=== PATIENT | female | born 1975 | race Caucasian/White ===

== ENCOUNTER 2016-04-20 13:04 | Emergency (ER) | payer MEDICAID ==
[~2016-04-20] VITALS: Wt 105.5 kg
[~2016-04-20 13:04] MED LIST: NITR-58 PO; PEN500 PO; RANI150T9 PO
[2016-04-20] MEDS ORDERED: FAMOTIDINE 20 MG INJ IV STA (13:19)
[2016-04-20] MEDS ORDERED: SOD CHLORIDE 0.9% 1,000 ML IV STA (13:19)
[2016-04-20] MEDS ORDERED: morphine 4 MG/ML VIAL IV STA (13:19)
[2016-04-20] MEDS ORDERED: ONDANSETRON 4 MG INJ IV STA (13:19)
[2016-04-20 14:29] LABS: CONDITION 1; EOSINOPHILS # 0.1 10^3/ul (0.0-0.5); EOSINOPHILS % 0.4 % (0.0-7.0); HEMATOCRIT 39.1 % (37.0-47.0); HEMOGLOBIN 13.3 g/dl (12.0-16.0); LH ANALYZER COMMENTS 1; LYMPHOCYTES # 1.6 10^3/ul (0.8-2.9); LYMPHOCYTES % 11.4 % (15.0-51.0); MEAN CORPUSCULAR HEMOGLOBIN 31.4 pg (29.0-33.0); MEAN CORPUSCULAR HGB CONC 33.9 g/dl (32.0-37.0); MEAN CORPUSCULAR VOLUME 92.5 fl (82.0-101.0); MEAN PLATELET VOLUME 8.2 fl (7.4-10.4); MONOCYTE # 0.5 10^3/ul (0.3-0.9); MONOCYTES % 3.7 % (0.0-11.0); NEUTROPHIL # 11.7 10^3/ul (1.6-7.5); NEUTROPHILS % 84.5 % (39.0-77.0); PLATELET COUNT 215 10^3/UL (140-440); RED BLOOD COUNT 4.23 10^6/ul (4.20-5.40); RED CELL DISTRIBUTION WIDTH 13.9 % (11.5-14.5); SUSPECT 1; UNCORRECTED WBC 13.8 10^3/ul (4.8-10.8); WHITE BLOOD COUNT 13.8 10^3/ul (4.8-10.8)
[2016-04-20 14:33] LABS: ALBUMIN 3.7 g/dl (3.3-4.9)
[2016-04-20 14:34] LABS: POTASSIUM 4.1 mmol/L (3.5-5.1)
[2016-04-20 14:36] LABS: BILIRUBIN,INDIRECT 0.1 mg/dl (0-1.1); BILIRUBIN,TOTAL 0.1 mg/dl (0.2-1.3); CREATININE 0.44 mg/dl (0.44-1.00)
[2016-04-20 14:37] LABS: ALBUMIN/GLOBULIN RATIO 1.08; CALCIUM 9.3 mg/dl (8.4-10.2); TOTAL PROTEIN 7.1 g/dl (6.1-8.1)
--- NOTE | 2016-04-20 14:52 | RADRPT ---
PROCEDURE: Real Time Sonogram. [id number] 02:37 p.m. CLINICAL INDICATION: 40-year female with vaginal bleeding. TECHNIQUE: This procedure was performed on a high-resolution real time Unit using a endovaginal pr obe. COMPARISON: OB sonogram 04/12/2015. FINDINGS: Presentation: Breech. Cervical Length: Not evaluated.Placental Location: Posterior grade 0.Placental Previa: Not demonst rated. Body limb and cardiac motion: Yes.Heart rate: 150 4 beats per minute The skull, ventricles and stomach are unremarkable. Other anatomy is not evaluated. sex: Not evaluated. Amniotic fluid volume:Normal. Measured data: BPD:4.7 cm20 weeks 1 day. HC:16.5 cm19 weeks 1 day. AC:16.42 cm21 weeks 3 days. FC:3.1 cm19 weeks 4 days. AUA:20 weeks 1 dayplus or minus 1 week 3 days. DELONTE (AUA):09/23/2016. Serial scan estimated menstrual age: Not calculated. weight: 254 g plus/minus 53 g. Endovaginal imaging utilized: Yes. Additional findings: No. IMPRESSION: See above. RPTAT:AAJJ Physician Deni Date Time Electronically viewed and signed by Physician Deni on 04/20/2016 14:51 JM/
--- NOTE | 2016-04-20 15:09 | ERD ---
ER Documentation Chief Complaint Date/Time DATE: 04/20/16 TIME: 15:08 Chief Complaint ABD PAIN WITH NAUSEA SINCE AM HPI This is a 40-year-old female presents to the emergency room with a chief complaint of abdominal cramping and nausea for 1 days duration. The patient does state that she is . She thinks that she is approximately 15 weeks . She denies any vaginal bleeding or vaginal discharge. Patient came to the ER for evaluation. ROS All systems reviewed and are negative except as per history of present illness. Medications Home Meds Active Scripts Nitrofurantoin Monohyd Macrocr* (Macrobid*) 100 Mg Capsr, 100 MG PO BID for 14 Days, CAP Prov:COLETTE CUBA DO 02/10/16 Nitrofurantoin Monohyd Macrocr* (Macrobid*) 100 Mg Capsr, 100 MG PO BID for 5 Days, CAP Prov:JANET SAUCEDO SQL ANALYST 11/05/15 Penicillin V Potassium* (Penicillin V K*) 500 Mg Tab, 500 MG PO BID for 10 Days , TAB Prov:MARTHA AMADOR 07/31/15 Ranitidine Hcl* (Zantac*) 150 Mg Tablet, 150 MG PO BID for EPIGASTRIC PAIN, #30 TAB Prov:CLARA ALATORRE DO 07/01/15 Allergies Allergies: Coded Allergies: No Known Drug Allergy (Unverified Allergy, Unknown, 01/22/14) PMhx/Soc History of Surgery: Yes (c section x's 2 ) Anesthesia Reaction: No Hx Neurological Disorder: No Hx Respiratory Disorders: No Hx Cardiac Disorders: Yes (HIGH CHOLESTEROL) Hx Psychiatric Problems: No Hx Miscellaneous Medical Probl: Yes Hx Alcohol Use: No Hx Substance Use: No Hx Tobacco Use: No Smoking Status: Never smoker Physical Exam Vitals Vital Signs Date Time Temp Pulse Resp B/P Pulse Ox O2 Delivery O2 Flow Rate FiO2 04/20/16 13:05 98.7 99 25 190/96 99 Physical Exam Const: No acute distress Head: Atraumatic Eyes: Normal Conjunctiva ENT: Normal External Ears, Nose and Mouth. Neck: Full range of motion..~ No meningismus. Resp: Clear to auscultation bilaterally Cardio: Regular rate and rhythm, no murmurs Abd: Soft, non tender, non distended. Normal bowel sounds Skin: No petechiae or rashes Back: No midline or flank tenderness Ext: No cyanosis, or edema Neur: Awake and alert Psych: Normal Mood and Affect Result Diagram: 04/20/16 1350 04/20/16 1350 Results 24 hrs Laboratory Tests Test 04/20/16 13:50 Alanine Aminotransferase (ALT/SGPT) 26IU/L Albumin 3.7g/dl Albumin/Globulin Ratio 1.08 Alkaline Phosphatase 54IU/L Anion Gap 19 Aspartate Amino Transf (AST/SGOT) 26IU/L Basophils # 0.010^3/ul Basophils % 0.0% Beta HCG, Quantitative 9032.4mIU/ml Blood Urea Nitrogen 9mg/dl Calcium Level 9.3mg/dl Carbon Dioxide Level 21mmol/L Chloride Level 105mmol/L Creatinine 0.44mg/dl Direct Bilirubin 0.00mg/dl Eosinophils # 0.110^3/ul Eosinophils % 0.4% Globulin 3.40g/dl Glucose Level 74mg/dl Hematocrit 39.1% Hemoglobin 13.3g/dl Indirect Bilirubin 0.1mg/dl Lipase 74U/L Lymphocytes # 1.610^3/ul Lymphocytes % 11.4% Mean Corpuscular Hemoglobin 31.4pg Mean Corpuscular Hemoglobin Concent 33.9g/dl Mean Corpuscular Volume 92.5fl Mean Platelet Volume 8.2fl Monocytes # 0.510^3/ul Monocytes % 3.7% Neutrophils # 11.710^3/ul Neutrophils % 84.5% Nucleated Red Blood Cells # 0.010^3/ul Nucleated Red Blood Cells % 0.0/100WBC Platelet Count 94802^3/UL Potassium Level 4.1mmol/L Red Blood Count 4.2310^6/ul Red Cell Distribution Width 13.9% Sodium Level 141mmol/L Total Bilirubin 0.1mg/dl Total Protein 7.1g/dl White Blood Count 13.810^3/ul Current Medications Medications (Trade) Dose Ordered Sig/Jacoby Route PRN Reason Start Time Stop Time Status Last Admin Dose Admin Sodium Chloride (NS) 1,000 ml @ 1,000 mls/hr Q1H STAT IV 04/20/16 13:19 04/20/16 14:18 DC 04/20/16 14:01 Morphine Sulfate (morphine) 4 mg ONCE STAT IV 04/20/16 13:19 04/20/16 13:20 DC 04/20/16 14:02 Ondansetron HCl (Zofran Inj) 4 mg ONCE STAT IV 04/20/16 13:19 04/20/16 13:20 DC 04/20/16 14:01 Famotidine (Pepcid Iv) 20 mg ONCE STAT IV 04/20/16 13:19 04/20/16 13:20 DC 04/20/16 14:01 Procedures/MDM Ultrasound abdomen: Presentation: Breech. Cervical Length: Not evaluated. Placental Location: Posterior grade 0. Placental Previa: Not demonstrated. Body limb and cardiac motion: Yes. Heart rate: 150 4 beats per minute The skull, ventricles and stomach are unremarkable. Other anatomy is not evaluated. sex: Not evaluated. Amniotic fluid volume: Normal. Measured data: BPD: 4.7 cm 20 weeks 1 day. HC: 16.5 cm 19 weeks 1 day. AC: 16.42 cm 21 weeks 3 days. FC: 3.1 cm 19 weeks 4 days. AUA: 20 weeks 1 day plus or minus 1 week 3 days. DELONTE (AUA): 09/23/2016. Serial scan estimated menstrual age: Not calculated. weight: 254 g plus/minus 53 g. Endovaginal imaging utilized: Yes. Additional findings: No. This 40-year-old female presents to the ER for evaluation of abdominal cramping. Patient was found to be 20 weeks and 1 day gestational age with a breech presentation. This patient has no bleeding, hemodynamically stable. The patient with discharge at this time and will be sent to OB triage for 4 hour monitoring Departure Diagnosis: Primary Impression: Abdominal pain affecting Additional Impression: Breech presentation Condition: Stable COLETTE CUBA DO Apr 20, 2016 15:09
[2016-04-20 15:20] VITALS: BP 118/60; PULSE 67; RESP 18; TEMP 98.7
[2016-04-20 15:28] LABS: ADD UMIC YES; URINE BILIRUBIN (Dip) NEGATIVE (NEGATIVE); URINE BLOOD (Dip) TRACE (NEGATIVE); URINE COLOR LT. YELLOW (YELLOW); URINE GLUCOSE (Dip) NEGATIVE (NEGATIVE); URINE KETONES (Dip) NEGATIVE (NEGATIVE); URINE LEUKOCYTE ESTERASE (Dip) 1+ (NEGATIVE); URINE NITRITE (Dip) NEGATIVE (NEGATIVE); URINE TOTAL PROTEIN (Dip) NEGATIVE (NEGATIVE); URINE UROBILINOGEN (Dip) 0.2 E.U./dL (0.1-1.0)
[2016-04-20 15:49] LABS: BACTERIA,URINE MODERATE; SQUAMOUS EPITHELIAL CELL,UR MANY; URINE RBCS 0-2 /HPF (0)
[2016-04-20] MEDS ORDERED: PREN1TAB17 PO (16:34)
[2016-04-20] MEDS ORDERED: FERR325C PO (21:12)
== END 2016-04-20 15:25 | disposition home or self-care (01) ==
LOC: E/R 13:04
DX: O26.892 Other specified pregnancy related conditions, second trimester (principal); O32.1XX0 Maternal care for breech presentation, not applicable or unspecified; R11.0 Nausea; R10.9 Unspecified abdominal pain; Z3A.20 20 weeks gestation of pregnancy
CPT/HCPCS: 36415; 76805; 80053; 81001; 83690; 84702; 85025; 96374; 96375; J2270; J2405; J7030; Z7502; Z7610; 81003

== ENCOUNTER 2016-04-20 15:58 | Outpatient (CLI) | payer MEDICAID ==
[~2016-04-20] VITALS: Ht 157.5 cm; Wt 103.5 kg
[2016-04-20 16:31] VITALS: BP 115/56; Ht 157.5 cm; Wt 103.5 kg
[2016-04-20] MEDS ORDERED: PREN1TAB17 PO (16:34)
--- NOTE | 2016-04-20 20:23 | HP ---
Date/Time of Note Date/Time of Note DATE: 04/20/16 TIME: 20:18 OB - History Hx of Present Free Text/Dictation OB Triage Pt is a 40yo at 18+6 who presents with c/o LAP since noon today. Pt states pain has significantly decreased and is quite minimal now. Denies vaginal bleeding, leaking of fluid, dysuria or back pain. PROCEDURE: Real Time Sonogram. [id number] 02:37 p.m. CLINICAL INDICATION: 40-year female with vaginal bleeding. TECHNIQUE: This procedure was performed on a high-resolution real time Unit using a endovaginal probe. COMPARISON: OB sonogram 04/12/2015. FINDINGS: Presentation: Breech. Cervical Length: Not evaluated. Placental Location: Posterior grade 0. Placental Previa: Not demonstrated. Body limb and cardiac motion: Yes. Heart rate: 150 4 beats per minute The skull, ventricles and stomach are unremarkable. Other anatomy is not evaluated. sex: Not evaluated. Amniotic fluid volume: Normal. Measured data: BPD: 4.7 cm 20 weeks 1 day. HC: 16.5 cm 19 weeks 1 day. AC: 16.42 cm 21 weeks 3 days. FC: 3.1 cm 19 weeks 4 days. AUA: 20 weeks 1 day plus or minus 1 week 3 days. DELONTE (AUA): 09/23/2016. Serial scan estimated menstrual age: Not calculated. weight: 254 g plus/minus 53 g. Endovaginal imaging utilized: Yes. Additional findings: No. IMPRESSION: See above. PROCEDURE: CERVICAL LENGTH ULTRASOUND CLINICAL INDICATION: Pelvic pain. TECHNIQUE: Trans-vaginal imaging of the cervical canal was performed utilizing carrillo-scale imaging. Sagittal and transverse images were obtained. Trans-abdominal images were also obtained. The images were reviewed on a PACS workstation. COMPARISON: None. FINDINGS: There is a single live intrauterine . heart rate is 150 beats per minute. Position is cephalic/variable and placenta is posterior grade 0. There is no placenta previa. The cervix is closed with a length of 4.4 cm. IMPRESSION: 1. Cervical length is 4.4 cm. Care: Good Care Past Family/Social History * Past Medical, Surgical, Family and Obstetric Histories reviewed from chart. OB Admission Exam Vital Signs Vital Signs Vital Signs Date Time Temp Pulse Resp B/P Pulse Ox O2 Delivery O2 Flow Rate FiO2 04/20/16 16:31 98.1 115/56 Room Air Physical Exam Abdomen: WNL (soft, NT, no rebound or guarding) Heart Rate: 140's OB Assessment/Plan Other Assessment: Lower abdominal cramping w/o e/o short cervix, UTI or SAB Other plan: SAB precautions reviewed. Questions answered to patient's satisfaction. Appropriate for d/c home. Pt advised to f/up as scheduled with Dr. Arizmendi as an outpatient. LIT BOYD MD Apr 20, 2016 20:23
--- NOTE | 2016-04-20 20:57 | RADRPT ---
PROCEDURE: CERVICAL LENGTH ULTRASOUND CLINICAL INDICATION: Pelvic pain. TECHNIQUE: Trans-vaginal imaging of the cervical canal was performed utilizing carrillo-scale imaging. Sagittal and transverse images were obtained. Trans-abdominal images were also obtained. The nicolás ges were reviewed on a PACS workstation. COMPARISON: None. FINDINGS: There is a single live intrauterine . heart rate is 150 beats per minute. Position is cephalic/variable and placenta is posterior grade 0. There is no placenta previa. The cervix is closed with a length of 4.4 cm. IMPRESSION: 1. Cervical length is 4.4 cm. RPTAT: QQ .Alexandre Murphy MD, MD Date Time Electronically viewed and signed by .Alexandre Murphy MD, on 04/20/2016 20:57 .R/
[2016-04-20] MEDS ORDERED: FERR325C PO (21:12)
--- NOTE | 2016-04-20 21:35 | TRIAGE ---
OB Triage Datetime Report Generated by CPN: 04/20/2016 21:35 Datetime: 04/20/2016 21:05 Stage of : OB Triage Datetime: 04/20/2016 21:00 Stage of : OB Triage Datetime: 04/20/2016 20:57 Stage of : Recovery Comments: FHR 150BPM per U/S results Datetime: 04/20/2016 19:59 Stage of : OB Triage Datetime: 04/20/2016 19:45 Stage of : OB Triage Datetime: 04/20/2016 19:40 Stage of : OB Triage Assessment Type: Triage Maternal Assessment Level of Consciousness: Fully Conscious DTR's/Clonus: DTRs 2+; No Clonus Headache: Denies Blurred Vision: No Respiratory Effort: Unlabored; Regular Rhythm; Equal Expansion Breath Sounds, Left: Clear and Equal Breath Sounds, Right: Clear and Equal Nausea/Vomiting: Denies RUQ Epigastric Pain: Denies Lower Extremities Edema: None Degree: None Upper Extremities Edema: None Degree: None Facial Edema: None Fall Risk Assessment History of Falling: (0) No Secondary Diagnosis: (0) No Ambulatory Aid: (0) Bedrest/Nurse Assist IV Therapy: (0) No Gait: (0) Normal/Bedrest/Immobile Mental Status: (0) Oriented to Own Ability Fall Score: 0 Fall Risk Score Definition: No Risk: No action required Labor Evaluation Frequency: None noted or palpated. Pt denies any pain or cramping at this time. Monitor Mode: External Resting Tone [place]: Relaxed Pain Assessment Pain Scale: 0 Pain Presence: None/Denies Pain Type: N/A Datetime: 04/20/2016 18:06 Stage of : OB Triage Labor Evaluation Frequency: 0 Monitor Mode: External Pattern: Normal: <= 5 Contractions in 10 Minutes Resting Tone [place]: Relaxed Pain Presence: None/Denies Pain Type: N/A Datetime: 04/20/2016 16:37 Stage of : OB Triage Assessment Type: Triage EGA: 18.6 Maternal Assessment Level of Consciousness: Fully Conscious DTR's/Clonus: DTRs 2+; No Clonus Headache: Denies Blurred Vision: No Respiratory Effort: Unlabored; Regular Rhythm; Equal Expansion Breath Sounds, Left: Clear and Equal Breath Sounds, Right: Clear and Equal Nausea/Vomiting: Denies RUQ Epigastric Pain: Denies Lower Extremities Edema: None Degree: None Upper Extremities Edema: None Degree: None Facial Edema: None Temperature Route: Oral Fall Risk Assessment History of Falling: (0) No Secondary Diagnosis: (0) No Ambulatory Aid: (0) Bedrest/Nurse Assist IV Therapy: (0) No Gait: (0) Normal/Bedrest/Immobile Mental Status: (0) Oriented to Own Ability Fall Score: 0 Fall Risk Score Definition: No Risk: No action required Labor Evaluation Frequency: 0 Monitor Mode: External Heart Rate Monitor Mode: Doppler (Annotations: 145-155) Pain Assessment Pain Scale: 0 Pain Presence: None/Denies Pain Type: N/A Datetime: 04/20/2016 16:36 Time of Arrival: 04/20/2016 15:40 Arrived By: Wheelchair Arrived From: Emergency Dept Chief Complaint: C/O ABDOMINAL PAIN Movement: Absent Patient Complaints: Other Time Provider Notified: 04/20/2016 16:37 Provider Notified: DR. MARSHALL Initial Plan: HARSH
== END 2016-04-20 21:15 | disposition home or self-care (01) ==
LOC: OBT 15:58 → L-D 15:59 → OBT 21:15
PROVIDERS: ATTEND Obstetrics & Gynecology
DX: O60.02 Preterm labor without delivery, second trimester (principal); Z3A.20 20 weeks gestation of pregnancy
CPT/HCPCS: 76817; Z7500; G0463

== ENCOUNTER 2016-09-05 13:15 | Inpatient (IN) | payer MEDICAID ==
[~2016-09-05] VITALS: Ht 157.5 cm; Wt 120.3 kg
[~2016-09-05 13:15] MED LIST changes: +FERR325C PO; -NITR-58 PO; -PEN500 PO; +PREN1TAB17 PO; -RANI150T9 PO
[2016-09-05 14:08] VITALS: Ht 157.5 cm; Wt 120.3 kg
[2016-09-05 14:09] VITALS: BP 119/63; PULSE 64; RESP 18
--- NOTE | 2016-09-05 14:43 | RADRPT ---
PROCEDURE: US OB biophysical profile. CLINICAL INDICATION: decreased movements TECHNIQUE: Multiple sonographic images of the pelvis were obtained. The images were reviewed on a PACS workstation. COMPARISON: 04/20/2016 FINDINGS: There is a single viable intrauterine gestation. Cardiac activity is present with 128 beats per min north fork. There is a vertex presentation. The placenta is fundal maternal left. There is no evidence of placental abruption. There is a slightly increased amount of amniotic fluid with an VIKTOR = 20.5 cm. Biophysical profile: movement 2/2 tone 2/2. breathing 2/2 VIKTOR 2/2 Total 10/08 RPTAT: AA . IMPRESSION: Normal biophysical profile. Slightly increased VIKTOR. . .Kaleb Morejon MD, Date Time Electronically viewed and signed by .Kaleb Morejon MD, MD on 09/05/2016 14:43 .S/
[2016-09-05] MEDS: LACTATED RINGER'S 1,000 ML IV SCH ×2 (15:43→18:02)
[2016-09-05] MEDS ORDERED: METHYLERGONOVINE 0.2 MG INJ IM PRN ×2 (17:00→22:00)
[2016-09-05] MEDS ORDERED: OXYTOCIN 30 UNITS/LR 500 ML IV PRN ×2 (17:00→22:00)
[2016-09-05] MEDS ORDERED: OXYTOCIN 30 UNITS/LR 500 ML IV SCH (17:00)
[2016-09-05] MEDS ORDERED: CARBOPROST 250 MCG INJ IM PRN ×2 (17:00→22:00)
[2016-09-05] MEDS ORDERED: MISOPROSTOL 200 MCG TAB PR PRN ×2 (17:00→22:00)
[2016-09-05] MEDS ORDERED: CEFAZOLIN 2 GM/50 ML (PMX) 50 ML IV SCH (17:00)
[2016-09-05 17:21] LABS: ADD SCAN DIFF NO; BASOPHILS % 0.3 % (0.0-2.0); EOSINOPHILS # 0.1 10^3/ul (0.0-0.5); HEMATOCRIT 37.9 % (37.0-47.0); HEMOGLOBIN 13.2 g/dl (12.0-16.0); LYMPHOCYTES # 1.6 10^3/ul (0.8-2.9); LYMPHOCYTES % 16.9 % (15.0-51.0); MEAN CORPUSCULAR HEMOGLOBIN 32.4 pg (29.0-33.0); MEAN CORPUSCULAR HGB CONC 34.8 g/dl (32.0-37.0); MEAN CORPUSCULAR VOLUME 92.9 fl (82.0-101.0); MEAN PLATELET VOLUME 10.5 fl (7.4-10.4); MONOCYTE # 0.5 10^3/ul (0.3-0.9); MONOCYTES % 5.1 % (0.0-11.0); NEUTROPHIL # 7.1 10^3/ul (1.6-7.5); NEUTROPHILS % 75.3 % (39.0-77.0); PLATELET COUNT 194 10^3/UL (140-415); RED BLOOD COUNT 4.08 10^6/ul (4.20-5.40); RED CELL DISTRIBUTION WIDTH 14.2 % (11.5-14.5); WHITE BLOOD COUNT 9.4 10^3/ul (4.8-10.8)
[2016-09-05 17:25] LABS: INR 0.83; PROTIME 11.4 Sec (12.2-14.2); PT RATIO 0.9
[2016-09-05 17:26] LABS: PARTIAL THROMBOPLASTIN TIME 28.7 Sec (25.0-35.0)
[2016-09-05] MEDS ORDERED: FENTAnyl 50 MCG/ML VIAL ONE (18:22)
[2016-09-05] MEDS ORDERED: morphine SULFATE/PF (10 MG/10 ML) INJ ONE (18:22)
[2016-09-05] MEDS ORDERED: PHENYLephrine (100 MCG/ML) 5ML SYG ONE (18:22)
[2016-09-05] MEDS ORDERED: LIDOCAINE 1% (MDV) 20 ML INJ ONE (18:45)
[2016-09-05] MEDS ORDERED: DEXAMETHASONE 4 MG/ML 1 ML INJ ONE (19:10)
[2016-09-05] MEDS ORDERED: ONDANSETRON 4 MG INJ ONE (19:10)
[2016-09-05] MEDS ORDERED: OXYTOCIN 10 UNIT INJ ONE ×2 (19:12→20:12)
[2016-09-05] MEDS ORDERED: NALOXONE (0.4 MG/ML) INJ IV PRN (20:00)
[2016-09-05] MEDS ORDERED: PROCHLORPERAZINE 10 MG INJ IV PRN (20:00)
[2016-09-05] MEDS ORDERED: ONDANSETRON 4 MG INJ IV PRN (20:00)
[2016-09-05] MEDS ORDERED: HYDROmorphONE 1 MG/ML SYG IV PRN ×2 (20:00)
[2016-09-05] MEDS ORDERED: KETOROLAC 30 MG INJ IV PRN (20:00)
[2016-09-05] MEDS ORDERED: DIPHENHYDRAMINE 50 MG INJ IV PRN (20:00)
[2016-09-05] MEDS ORDERED: ZOLPIDEM 5 MG TAB PO PRN (20:00)
[2016-09-05] MEDS ORDERED: CEFAZOLIN 1 GM INJ ONE (20:07)
[2016-09-05] MEDS ORDERED: METHYLENE BLUE 1% 10 ML INJ ZFS ONE (20:30)
--- NOTE | 2016-09-05 21:09 | HP ---
Date/Time of Note Date/Time of Note DATE: 09/05/16 TIME: 21:04 OB - History Hx of Present Free Text/Dictation admitted in labor at 38 weeks with previous C/S X 2 and desire for sterilization Chief Complaint: decreased FM noticed to have uterine contractions Last Menstrual Period: Dec 13, 2006 Estimated Due Date: Sep 19, 2016 : 3 Para: 2 Care: Good Care Ultrasounds: Normal mid trimester US Obstetrical Complications: None Medical Complications: Other (previous C/S X 2 ) Past Family/Social History * Past Medical, Surgical, Family and Obstetric Histories reviewed from chart. Blood Type: O+ Rubella: immune RPR/VDRL: Negative GBS Status: Negative HBsAG: Negative OB Admission Exam Vital Signs Vital Signs Vital Signs Date Time Temp Pulse Resp B/P Pulse Ox O2 Delivery O2 Flow Rate FiO2 09/05/16 14:09 98.0 64 18 119/63 97 Room Air Physical Exam HEENT: WNL Heart: Rhythm Normal Lungs: Clear, Equal Abdomen: WNL Extremities: Normal Reflexes: Normal Cervical Dilatation: 3cm Effacement: 75% Station: -3 Membranes: Intact Heart Rate: 130's Accelerations: Accelerations Present Decelerations: No Decelerations Varibility: Marked Contractions on Admission: 6-10 Minutes Apart Date/Time Contractions Began: ? Frequency of Contractions: ? Duration: ? Last 72 hours Lab Results CBC & BMP 09/05/16 15:40 OB Assessment/Plan Other Assessment: term gestation previous C/S X 2 labor pains desires sterilization Other plan: repeat C/S + BTL Patient had good awareness of nature and complications of C/S procedure including but but limited to infection and hemorrhage. Permanency and failure of tubal ligation procedure asa well as its future complications including but not limited to pelvic pain or ectopic were also clear to the patient and agreed to undergo C/S + BTL SILVIA RAMIREZ MD Sep 05, 2016 21:08
--- NOTE | 2016-09-05 21:12 | OPR ---
Operative Report Planned Procedure Procedure date Sep 05, 2016 Procedure(s) repeat C/S Performed by: SILVIA RAMIREZ MD Assisting provider: KASSIE AGUIRRE Anesthesiologist: KANIKA GOMEZ MD Pre-procedure diagnosis term gestation previous C/S X 2 desires sterilization labor pains Anesthesia Type: spinal Procedure Description Under satisfactory anaesthesia a Pfannenstiel incision was made two fingerbreadth above and parallel to the symphysis of pubis around the previous scar and previous scar was removed Incision was extended laterally to the border of the Recti muscles on either sides. Incision was carried down with sharp and blunt dissection until fascia was reached. Anterior Recti muscle fascia was incised in mid portion and incision extended laterally to the border of skin incision. Fascia was mobilized from muscle superiorly and Recti muscles were from midline using sharp and blunt dissection. Peritoneum was visualized; Avoiding bowel and bladder it was incised . Incision was extended superiorly and inferiorly. Bladder blade was placed. Posterior peritoneum covering the lower segment of the uterus and lower segment of the uterus were incised.Low transverse uterine incision was made on lower segment of the uterus. Incision extended laterally to the border of Round Lig. on either sides and baby was delivered from OT. position . Amniotic fluid appeared clear. Cord blood was obtained and cord had 3 vessels . Placenta was delivered spontaneously and appeared intact and complete. Intrauterine cavity was rubbed with a laparotomy sponge. Uterine incision was closed in 2 layers using running stitches of No1 Monocryl. Hemostasis appeared secure. Ovaries and Fallopian tubes were within normal limits. Bilateral Tubal Ligation was performed by following procedure: R fallopian tube was raised in mid portion; a Heidi clamp was placed below the fimbriae extending to proximal portion of the fallopian tube. Another clamp was placed parallel to the first and after incising the fallopian tube the stump was sutured using 0 Vicryl stitch. Hemostasis was secure . Same procedure was done on fallopian tube on the opposite side. Hemostasis appeared to be secure on ligated sites of either fallopian tubes. Announcing needle, lap sponge and instrument count to be correct abdomen was closed in layers as follows: Peritoneum and Recti muscles with running stitches of 20 Vicryl. Fascia with running stitch of No 1 PDS. Subcutaneous tissue with running stitches of 20 Chromic and skin was closed using sydni. Patient tolerated the procedure well and was transferred to [facility] in good condition. Post-Procedure Post-procedure diagnosis S/P C/S + BTL Findings: Live Baby Specimen removed: Yes Specimen description segments of R and L fallopian tubes Complications: None Pt Condition post procedure: stable Disposition: PACU Physician Certification I, the undersigned physician, hereby certify that I have discussed the procedure described in this consent form with this patient (or the patient's legal airport representative), including: * The risk and benefits of the procedure; * Any adverse reactions that may reasonably be expected to occur; * Any alternative efficacious methods of treatment which may be medically viable ; * The potential problems that may occur during recuperation; * Potential for blood transfusion and associated risks/benefits; and * Any research or economic interest I may have regarding this treatment. I further certify that the patient/legally responsible person was encouraged to ask question and that all questions were answered. SILVIA RAMIREZ MD Sep 05, 2016 21:12
[2016-09-05] MEDS ORDERED: ACETAMINOPHEN/CODEINE #3 TAB PO PRN (22:00)
[2016-09-05] MEDS ORDERED: NA PHOSPHATE/BIPHOS 133 ML ENEMA PR PRN (22:00)
[2016-09-05] MEDS: IBUPROFEN 800 MG TAB PO SCH (22:00)
[2016-09-05] MEDS ORDERED: VANCOMYCIN 1 GM (PMX) 250 ML IVPB SCH (22:00)
[2016-09-05] MEDS ORDERED: LANOLIN 7 GM TUBE TOP PRN (22:00)
[2016-09-06] MEDS: CEFAZOLIN 2 GM/50 ML (PMX) 50 ML IV SCH ×4 (01:46→17:54)
[2016-09-06] MEDS: LACTATED RINGER'S 1,000 ML IV SCH ×3 (01:47→17:54)
[2016-09-06 02:20] VITALS: BP 98/51; PULSE 59; RESP 18
[2016-09-06 04:00] VITALS: BP 90/45; PULSE 56; RESP 18
[2016-09-06] MEDS: IBUPROFEN 800 MG TAB PO SCH ×3 (06:00→21:34)
[2016-09-06] MEDS: CLINDAMYCIN 300 MG CAP PO SCH ×4 (06:06→17:54)
[2016-09-06 08:35] VITALS: BP 101/52; PULSE 61; RESP 18
[2016-09-06] MEDS: ENOXAPARIN 40 MG/0.4 ML SYG SC SCH ×2 (08:41→09:00)
[2016-09-06 08:44] LABS: ADD SCAN DIFF NO
[2016-09-06 08:47] LABS: BASOPHILS % 0.1 % (0.0-2.0); HEMATOCRIT 35.8 % (37.0-47.0); HEMOGLOBIN 11.7 g/dl (12.0-16.0); LYMPHOCYTES # 1.6 10^3/ul (0.8-2.9); LYMPHOCYTES % 11.3 % (15.0-51.0); MEAN CORPUSCULAR HEMOGLOBIN 30.5 pg (29.0-33.0); MEAN CORPUSCULAR HGB CONC 32.7 g/dl (32.0-37.0); MEAN CORPUSCULAR VOLUME 93.5 fl (82.0-101.0); MEAN PLATELET VOLUME 10.3 fl (7.4-10.4); MONOCYTE # 0.8 10^3/ul (0.3-0.9); MONOCYTES % 5.8 % (0.0-11.0); NEUTROPHIL # 11.2 10^3/ul (1.6-7.5); NEUTROPHILS % 81.9 % (39.0-77.0); PLATELET COUNT 180 10^3/UL (140-415); RED BLOOD COUNT 3.83 10^6/ul (4.20-5.40); RED CELL DISTRIBUTION WIDTH 14.1 % (11.5-14.5); WHITE BLOOD COUNT 13.7 10^3/ul (4.8-10.8)
[2016-09-06] MEDS: SENNA/DOCUSATE NA (8.6MG/50MG) TAB PO SCH ×2 (09:39→21:17)
[2016-09-06] MEDS ORDERED: BISACODYL 10 MG SUPP PR ONE ×2 (10:30→22:00)
[2016-09-06 11:45] VITALS: BP 108/69; PULSE 67; RESP 18
--- NOTE | 2016-09-06 14:47 | PN ---
Date/Time of Note Date/Time of Note DATE: 09/06/16 TIME: 14:45 Assessment/Plan VTE Prophylaxis VTE Prophylaxis Intervention: ambulation Lines/Catheters IV Catheter Type (from Nrsg): Peripheral IV Assessment/Plan Assessment/Plan S/P C/S POD # 1 will advance diet and ambulate Subjective 24 Hr Interval Summary No BM Passing flatus Constitutional: BM, ambulates, flatus, improved, no complaints, urine output Pain Control: well controlled Exam/Review of Systems Vital Signs Vitals Vital Signs Date Time Temp Pulse Resp B/P Pulse Ox O2 Delivery O2 Flow Rate FiO2 09/06/16 11:45 98.2 67 18 108/69 Room Air 09/06/16 09:01 94 21 Intake and Output 09/05/16 09/05/16 09/06/16 15:00 23:00 07:00 Intake Total 2000 ml 1250 ml Output Total 800 ml 1123 ml Balance 1200 ml 127 ml Exam Free Text/Dictation abdomen: soft BS + incision: covered Constitutional: alert, oriented, well developed Psych: nl mood/affect, no complaints Head: atraumatic, normocephalic Eyes: EOMI, nl conjunctiva, nl lids, nl sclera ENMT: mucosa pink and moist, nl external ears & nose, nl lips & teeth, nl nasal mucosa & septum Neck: non-tender, supple Respiratory: clear to auscultation, normal air movement Cardiovascular: nl pulses, regular rate and rhythm Gastrointestinal: nl liver, spleen, non-tender, soft Musculoskeletal: nl extremities to inspection, nl gait and stance Extremities: normal pulses Neurological: BUZZLE BUFFER II-XII intact, nl mental status, nl speech, nl strength Skin: nl turgor, rash or lesions Lymph: nl lymph nodes Results Result Diagram: 09/06/16 0750 SILVIA RAMIREZ MD Sep 06, 2016 14:46
[2016-09-06 15:30] VITALS: BP 110/60; PULSE 77; RESP 18
[2016-09-06 19:35] VITALS: BP 98/49; PULSE 70; RESP 18
[2016-09-06] MEDS: OXYCODONE/ACETAMINOPHEN (5/325) TAB PO PRN (21:34)
[2016-09-07] VITALS: BP 100/69; PULSE 69; RESP 18
[2016-09-07] MEDS: CLINDAMYCIN 300 MG CAP PO SCH ×4 (00:14→19:06)
[2016-09-07] MEDS: OXYCODONE/ACETAMINOPHEN (5/325) TAB PO PRN ×4 (01:39→20:03)
[2016-09-07] MEDS: CEFAZOLIN 2 GM/50 ML (PMX) 50 ML IV SCH ×3 (01:40→19:53)
[2016-09-07 03:50] VITALS: BP 105/53; PULSE 67; RESP 19
[2016-09-07] MEDS: IBUPROFEN 800 MG TAB PO SCH ×3 (05:37→22:44)
[2016-09-07] MEDS: LACTATED RINGER'S 1,000 ML IV SCH (05:50)
[2016-09-07 07:44] LABS: ADD SCAN DIFF NO
[2016-09-07 07:49] LABS: BASOPHILS % 0.3 % (0.0-2.0); EOSINOPHILS # 0.1 10^3/ul (0.0-0.5); HEMATOCRIT 37.2 % (37.0-47.0); HEMOGLOBIN 12.2 g/dl (12.0-16.0); LYMPHOCYTES # 2.7 10^3/ul (0.8-2.9); LYMPHOCYTES % 25.8 % (15.0-51.0); MEAN CORPUSCULAR HGB CONC 32.8 g/dl (32.0-37.0); MEAN CORPUSCULAR VOLUME 94.4 fl (82.0-101.0); MEAN PLATELET VOLUME 9.7 fl (7.4-10.4); MONOCYTE # 0.6 10^3/ul (0.3-0.9); MONOCYTES % 5.8 % (0.0-11.0); NEUTROPHIL # 6.9 10^3/ul (1.6-7.5); NEUTROPHILS % 65.7 % (39.0-77.0); PLATELET COUNT 187 10^3/UL (140-415); RED BLOOD COUNT 3.94 10^6/ul (4.20-5.40); RED CELL DISTRIBUTION WIDTH 14.5 % (11.5-14.5); WHITE BLOOD COUNT 10.5 10^3/ul (4.8-10.8)
[2016-09-07 08:32] VITALS: BP 117/56; PULSE 65; RESP 19
[2016-09-07] MEDS: ENOXAPARIN 40 MG/0.4 ML SYG SC SCH (09:43)
[2016-09-07] MEDS: SENNA/DOCUSATE NA (8.6MG/50MG) TAB PO SCH ×2 (09:45→21:53)
--- NOTE | 2016-09-07 13:59 | DS ---
Date/Time of Note Date/Time of Note home next day DATE: 09/07/16 TIME: 13:56 Obstetrical Discharge Record Final Diagnosis Final Diagnosis: Term delivered Other Final Diagnosis S/P C/S + BTL Vaginal Delivery Obstetrical Delivery: Bilateral Tubal Ligation Section Section: Repeat Condition on Discharge Physical Assessment Last Vitals: see notes Voiding: Yes Bowel Movement: Yes Breast: Soft, non-tender, Filling Fundus: Firm Abdomen and Incision: soft BS + incision: healing well Episiotomy: NA Calf Tenderness: No Patient Condition: Good SILVIA RAMIREZ MD Sep 07, 2016 13:59
--- NOTE | 2016-09-07 14:01 | DS ---
Date/Time of Note Date/Time of Note DATE: 09/07/16 TIME: 13:59 Discharge Summary Admission/Discharge Info Admit Date/Time Sep 05, 2016 at 16:40 Discharge Date/Time 09/07/2016 Discharge Diagnosis S/P C/S + BTL Patient Condition: Good Procedures repeat C/S+BTL Hx of Present Illness 40 y/o female had repeat C/S +BTL iat 38 weeks in labor Hospital Course uncomplicated Home Meds Reported Medications Ferrous Sulfate (Iron) 325 Mg Capsule.er, 325 MG PO DAILY, CAP 04/20/16 Vit-Iron Fumarate-FA ( Tablet) 1 Each Tablet, 1 TAB PO DAILY, TAB 04/20/16 Follow-up Plan 2-3 days in clinic for staple removal Primary Care Provider Care Physician No Primary Pending Labs Laboratory Tests Test 09/07/16 07:35 White Blood Count 10.510^3/ul (4.8-10.8) Red Blood Count 3.9410^6/ul (4.20-5.40) Hemoglobin 12.2g/dl (12.0-16.0) Hematocrit 37.2% (37.0-47.0) Mean Corpuscular Volume 94.4fl (82.0-101.0) Mean Corpuscular Hemoglobin 31.0pg (29.0-33.0) Mean Corpuscular Hemoglobin Concent 32.8g/dl (32.0-37.0) Red Cell Distribution Width 14.5% (11.5-14.5) Platelet Count 94209^3/UL (140-415) Mean Platelet Volume 9.7fl (7.4-10.4) Neutrophils % 65.7% (39.0-77.0) Lymphocytes % 25.8% (15.0-51.0) Monocytes % 5.8% (0.0-11.0) Eosinophils % 1.0% (0.0-7.0) Basophils % 0.3% (0.0-2.0) Nucleated Red Blood Cells % 0.0/100WBC (0.0-0.0) Neutrophils # 6.910^3/ul (1.6-7.5) Lymphocytes # 2.710^3/ul (0.8-2.9) Monocytes # 0.610^3/ul (0.3-0.9) Eosinophils # 0.110^3/ul (0.0-0.5) Basophils # 0.010^3/ul (0.0-0.1) Nucleated Red Blood Cells # 0.010^3/ul (0.0-0.0) SILVIA ARMIREZ MD Sep 07, 2016 14:01
--- NOTE | 2016-09-07 14:04 | PD.PPDC ---
COMMERCIAL ILLUSTRATOR Discharge Instruction Provider Information Physician Information 40 y/o female morbidly obese had repeat C/S + BTL at 38 weeks in labor Diagnosis Final Diagnosis: S/P C/S + BTL Condition Patient Condition: Good Diet Diet: Resume Regular Diet Activity/Restrictions Activity: May Shower Restrictions: No Exercising No Lifting Nothing in the Vagina Return to Work or School: Nov 11, 2016 Wound/Drain Care Instructions Wound/Drain Care Instructions: Keep clean and dry Follow-up Follow-up with Physician: 2, 3, Day/Days (in clinic for staple removval) Return to clinic for OB Instructions: Breast Tenderness Depression SILVIA RAMIREZ MD Sep 07, 2016 14:04
[2016-09-07] MEDS ORDERED: Oxycodone/Acetamin (5/325) PO (14:05)
[2016-09-07] MEDS ORDERED: IBUP800T25 PO (14:05)
[2016-09-07 16:19] VITALS: BP 114/54; PULSE 67; RESP 19
[2016-09-07 20:00] VITALS: BP 109/51; PULSE 64; RESP 18
[2016-09-08] MEDS: CLINDAMYCIN 300 MG CAP PO SCH ×3 (02:40→12:32)
[2016-09-08] MEDS: CEFAZOLIN 2 GM/50 ML (PMX) 50 ML IV SCH ×2 (04:26→14:00)
[2016-09-08 04:30] VITALS: BP 115/56; PULSE 67; RESP 18
[2016-09-08] MEDS: IBUPROFEN 800 MG TAB PO SCH ×2 (06:25→14:00)
[2016-09-08 08:00] VITALS: BP 136/60; PULSE 73; RESP 20
[2016-09-08] MEDS ORDERED: MEASLES,MUMPS,RUBELLA VACCINE INJ SC* ONE (09:00)
[2016-09-08] MEDS ORDERED: DIPHTH/TET/ACEL PERTUSS (ADULT) 0.5 ML VIAL IM* ONE (09:00)
[2016-09-08] MEDS: ENOXAPARIN 40 MG/0.4 ML SYG SC SCH (09:21)
[2016-09-08] MEDS: SENNA/DOCUSATE NA (8.6MG/50MG) TAB PO SCH (09:23)
== END 2016-09-08 14:30 | disposition home or self-care (01) | DRG 765 ==
LOC: OBT 13:15 → L-D 13:17 → OBT 16:40 → L-D 16:40 → PP1 09-06 02:19
PROVIDERS: ADMIT Obstetrics & Gynecology; ATTEND Obstetrics & Gynecology
PROC: 0UB70ZZ Excision of Bilateral Fallopian Tubes, Open Approach (ICD-10-PCS; 2016-09-05)
PROC: 10D00Z1 Extraction of Products of Conception, Low, Open Approach (ICD-10-PCS; principal; 2016-09-05 19:30)
DX: O34.211 Maternal care for low transverse scar from previous cesarean delivery (principal); Z68.42 Body mass index [BMI] 45.0-49.9, adult; Z3A.38 38 weeks gestation of pregnancy; Z37.0 Single live birth; Z30.2 Encounter for sterilization; O99.213 Obesity complicating pregnancy, third trimester; E66.01 Morbid (severe) obesity due to excess calories
CPT/HCPCS: 36415; 76818; 85025; 85610; 85730; 86592; 86850; 86900; 86901; 88302; 90715; 94760; 96360; 99464; G0463; J0690; J1100; J1650; J1885; J2274; J2370; J2405; J2590; J3010; J3370; J7120

== ENCOUNTER 2016-09-11 16:20 | Emergency (ER) | payer MEDICAID ==
[~2016-09-11] VITALS: Ht 162.6 cm; Wt 116.0 kg
[~2016-09-11 16:20] MED LIST changes: +IBUP800T25 PO; +Oxycodone/Acetamin (5/325) PO
[2016-09-11 16:24] VITALS: Ht 162.6 cm; Wt 116.0 kg
--- NOTE | 2016-09-11 17:56 | ERD ---
ER Documentation Chief Complaint Date/Time DATE: 09/11/16 TIME: 17:55 Chief Complaint sent by pmd for redness at c section site , denies fever/chills HPI This pleasant 40-year-old female sent over to the emergency department today for postop section wound infection. Patient was seen by [facility]. day 7. Full-term 39 week without complication. Patient denies any pain or discharge coming from incision site. On-call labor is called for evaluation ROS All systems reviewed and are negative except as per history of present illness. Medications Home Meds Active Scripts Labetalol Hcl* (Labetalol Hcl*) 100 Mg Tablet, 200 MG PO BID, #120 TAB 0 Refills Prov:SILVIA RAMIREZ MD 09/15/16 [Oxycodone/Acetamin (5/325)] 1 TAB TAB No Conflict Check, 2 TAB PO Q4H Y for PAIN LEVEL 6-10, #30 0 Refills Prov:SILVIA RAMIREZ MD 09/07/16 Ibuprofen* (Ibuprofen*) 800 Mg Tablet, 800 MG PO Q8, #30 TAB 0 Refills Prov:SILVIA RAMIREZ MD 09/07/16 Reported Medications Ferrous Sulfate (Iron) 325 Mg Capsule.er, 325 MG PO DAILY, CAP 04/20/16 Vit-Iron Fumarate-FA ( Tablet) 1 Each Tablet, 1 TAB PO DAILY, TAB 04/20/16 Discontinued Scripts Cephalexin* (Keflex*) 500 Mg Capsule, 500 MG PO QID for 10 Days, CAP Prov:ELGIN ANDRE 09/11/16 Allergies Allergies: Coded Allergies: No Known Drug Allergies (Verified Allergy, Unknown, 04/20/16) No Known Drug Allergy (Unverified Allergy, Unknown, 01/22/14) PMhx/Soc History of Surgery: Yes (c section x's 2 ) Anesthesia Reaction: No Hx Neurological Disorder: No Hx Respiratory Disorders: No Hx Cardiac Disorders: Yes (HIGH CHOLESTEROL) Hx Psychiatric Problems: No Hx Miscellaneous Medical Probl: Yes Hx Alcohol Use: No Hx Substance Use: No Hx Tobacco Use: No Smoking Status: Never smoker Physical Exam Vitals Vitals stable, triage notes reviewed Physical Exam Const: Obese, well-hydrated, no acute distress Head: Atraumatic Eyes: Normal Conjunctiva, PERRLA, EOMI ENT: Normal External Ears, Nose and Mouth., Mucous membranes moist Neck: Resp: Respirations even and unlabored, no respiratory distress Cardio: Abd: Abdomen obese, large pannus folded over section site. Site approximated, Steri-Strips with erythema noted, no warmth, no drainage, Skin: Back: Ext: Neur: Awake and alert Psych: Normal Mood and Affect Procedures/MDM I received report from Reyna WILSON, patient will be evaluated by , on- call OB This 40-year-old female was sent over to the emergency department today for postop section wound infection. Patient was seen by [facility]. day 7. Full-term 39 week without complication. On-call labor is called for evaluation Patient has been removed Steri-Strips, erythema noted on pubis and abdomen surrounding site, wound is approximated, non-oozing to palpation, patient will be discharged home on Keflex 500 mg 1 tab p.o. 4 times daily 10 days instructions to follow-up with [facility] in the next 48 hours for wound reevaluation. Return to emergency department for worsening of erythema pain oozing from incision site. I feel the patient is stable for discharge at this time with outpatient management as discussed. I have discussed results, examination findings, the treatment plan with the patient and family present prior to discharge. Indications for emergent reevaluation, side effects of medication were also discussed. All questions were answered. Patient verbalizes understanding and agrees with plan of care. ELGIN ANDRE Sep 11, 2016 17:56
[2016-09-11] MEDS ORDERED: CEPH-443 PO (19:38)
[2016-09-11 19:43] VITALS: BP 140/80; RESP 18; TEMP 98.5
--- NOTE | 2016-09-12 01:15 | CONS ---
Date/Time of Note Date/Time of Note DATE: 09/12/16 TIME: 01:08 Assessment/Plan Assessment/Plan Chief Complaint/Hosp Course Postop day #7, Status post repeat section and BTL wound erythema, likely beginning of wound infection but currently no evidence of 1 cellulitis or abscess or wound disruption Incision well-healed Discussed and recommended the patient to be started on Keflex 500 mg p.o. 4 times daily Follow-up with OB office in 2-3 days after discharge Precaution was given to return to ED if she has any fever, chills, drainage from the incision, increased erythema, pain or any other concerns. 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 Arizmendi, was sent from the clinic after noted to have some erythema at the upper border of the incision. Patient denied any pain, discharge from the incision, fever or chills or any other symptoms Per patient had an uncomplicated antepartum and intraoperative and postoperative course. section was elective as repeat section with BTL She denies any complication besides obesity during and . Patient denies any other complaints. She only reports had some slight erythema around the wound. Patient denies any history of diabetes prior or during . Subjective hx not possible: other (Stable condition) Constitutional: no complaints Eyes: no complaints ENT: no complaints Respiratory: no complaints Cardiovascular: no complaints Gastrointestinal: no complaints Genitourinary: other (Erythema between 0.5 mm to 1 cm at the upper border of the section incision. No evidence of drainage from the wound, wound separation of wound dehiscence) Musculoskeletal: no complaints Skin: other (Erythema around the upper part of the section wound, covering an area between 0.5-1 cm along the upper border of the incision with no evidence of drainage or wound separation or induration or fluctuation) Neurologic: no complaints Endocrine: no complaints Lymphatic: no complaints Psychological: no complaints Past Medical History Obesity Past Surgical History Status post section 3 Family History Significant Family History: other (Both parents with hypertension) Social History Alcohol Use: none Smoking Status: Never smoker Drug Use: none Exam/Review of Systems Vital Signs Vitals Vital Signs Date Time Temp Pulse Resp B/P Pulse Ox O2 Delivery O2 Flow Rate FiO2 09/11/16 19:43 98.5 18 140/80 98 Room Air 09/11/16 16:24 68 Exam Constitutional: alert, oriented, well developed Psych: nl mood/affect, no complaints Head: atraumatic, normocephalic Eyes: EOMI, nl conjunctiva, nl lids Respiratory: clear to auscultation, normal air movement Cardiovascular: nl pulses, regular rate and rhythm Gastrointestinal: other, soft, surgical scars (Scar related to recent section in the lower abdomen with evidence of erythema with no induration or fluctuation or oozing or discharge covering an area about 0.5-1 cm along the upper border of the incision. Often expressing of the area no discharge, seroma or pus noted. Skin well-healed with no evidence of disruption.) Musculoskeletal: nl extremities to inspection, nl gait and stance Extremities: normal pulses Neurological: PRODUCTION OR PLANT ENGINEER II-XII intact, nl mental status, nl speech, nl strength DENISE MIRANDA MD Sep 12, 2016 01:15
== END 2016-09-11 19:50 | disposition home or self-care (01) ==
LOC: FTE 16:20
DX: O86.0 Infection of obstetric surgical wound (principal); B96.89 Other specified bacterial agents as the cause of diseases classified elsewhere
CPT/HCPCS: 99283

== ENCOUNTER 2016-09-14 07:18 | Observation (INO) | payer MEDICAID ==
[~2016-09-14] VITALS: Ht 162.6 cm; Wt 112.0 kg
[~2016-09-14 07:18] MED LIST changes: +CEPH-443 PO
[2016-09-14 07:23] VITALS: Ht 162.6 cm; Wt 112.0 kg
[2016-09-14 08:19] LABS: ADD SCAN DIFF NO
[2016-09-14 08:21] LABS: BASOPHILS % 0.5 % (0.0-2.0); EOSINOPHILS # 0.2 10^3/ul (0.0-0.5); EOSINOPHILS % 2.6 % (0.0-7.0); HEMATOCRIT 38.9 % (37.0-47.0); HEMOGLOBIN 13.1 g/dl (12.0-16.0); LYMPHOCYTES # 1.5 10^3/ul (0.8-2.9); LYMPHOCYTES % 19.9 % (15.0-51.0); MEAN CORPUSCULAR HEMOGLOBIN 31.5 pg (29.0-33.0); MEAN CORPUSCULAR HGB CONC 33.7 g/dl (32.0-37.0); MEAN CORPUSCULAR VOLUME 93.5 fl (82.0-101.0); MEAN PLATELET VOLUME 8.9 fl (7.4-10.4); MONOCYTE # 0.3 10^3/ul (0.3-0.9); MONOCYTES % 4.4 % (0.0-11.0); NEUTROPHIL # 5.1 10^3/ul (1.6-7.5); NEUTROPHILS % 70.7 % (39.0-77.0); PLATELET COUNT 220 10^3/UL (140-415); RED BLOOD COUNT 4.16 10^6/ul (4.20-5.40); RED CELL DISTRIBUTION WIDTH 13.3 % (11.5-14.5); WHITE BLOOD COUNT 7.3 10^3/ul (4.8-10.8)
[2016-09-14 08:23] LABS: ADD UMIC YES; UR BILIRUBIN (Dip) NEGATIVE (NEGATIVE); UR BLOOD (Dip) 3+ (NEGATIVE); UR CLARITY CLOUDY (CLEAR); UR COLOR LT. YELLOW (YELLOW); UR GLUCOSE (Dip) NEGATIVE (NEGATIVE); UR KETONES (Dip) NEGATIVE (NEGATIVE); UR LEUKOCYTE ESTERASE (Dip) 3+ (NEGATIVE); UR NITRITE (Dip) NEGATIVE (NEGATIVE); UR TOTAL PROTEIN (Dip) NEGATIVE (NEGATIVE); UR UROBILINOGEN (Dip) 0.2 E.U./dL (0.1-1.0)
[2016-09-14] MEDS ORDERED: hydrALAzine 20 MG INJ IV ONE (08:30)
[2016-09-14] MEDS ORDERED: LABETALOL HCL 20MG INJ IV ONE (08:30)
[2016-09-14 08:45] LABS: UR BACTERIA MODERATE /HPF (NONE SEEN); UR SQUAMOUS EPITHELIAL CELL OCCASIONAL /HPF (FEW)
[2016-09-14 08:51] LABS: ALBUMIN 3.9 g/dl (3.3-4.9); ALBUMIN/GLOBULIN RATIO 1.44; BILIRUBIN,INDIRECT 0.3 mg/dl (0-1.1); BILIRUBIN,TOTAL 0.3 mg/dl (0.2-1.3); CALCIUM 8.7 mg/dl (8.4-10.2); CREATININE 0.6 mg/dl (0.44-1.00); TOTAL PROTEIN 6.6 g/dl (6.1-8.1)
--- NOTE | 2016-09-14 09:42 | ERD ---
ER Documentation Chief Complaint Date/Time DATE: 09/14/16 TIME: 09:36 Chief Complaint POST OP C SECTION PAIN (JASON JOHNSON PA-C) HPI This a 40-year-old female who presents the emergency department today complaining of feeling weak and dizzy that started yesterday. States that she went to her clinic and was told to come here to the emergency room to get IV fluids. Denies any fever, chills, cough, sore throat, dysuria, chest pain or shortness of breath (JASON JOHNSON PA-C) ROS All systems reviewed and are negative except as per history of present illness. (JASON JOHNSON PA-C) Medications Home Meds Active Scripts Cephalexin* (Keflex*) 500 Mg Capsule, 500 MG PO QID for 10 Days, CAP Prov:ELGIN ANDRE 09/11/16 [Oxycodone/Acetamin (5/325)] 1 TAB TAB No Conflict Check, 2 TAB PO Q4H Y for PAIN LEVEL 6-10, #30 0 Refills Prov:SILVIA RAMIREZ MD 09/07/16 Ibuprofen* (Ibuprofen*) 800 Mg Tablet, 800 MG PO Q8, #30 TAB 0 Refills Prov:SILVIA RAMIREZ MD 09/07/16 Reported Medications Ferrous Sulfate (Iron) 325 Mg Capsule.er, 325 MG PO DAILY, CAP 04/20/16 Vit-Iron Fumarate-FA ( Tablet) 1 Each Tablet, 1 TAB PO DAILY, TAB 04/20/16 Allergies Allergies: Coded Allergies: No Known Drug Allergies (Verified Allergy, Unknown, 04/20/16) No Known Drug Allergy (Unverified Allergy, Unknown, 01/22/14) PMhx/Soc History of Surgery: Yes (c section x's 2 ) Anesthesia Reaction: No Hx Neurological Disorder: No Hx Respiratory Disorders: No Hx Cardiac Disorders: Yes (HIGH CHOLESTEROL) Hx Psychiatric Problems: No Hx Miscellaneous Medical Probl: Yes Hx Alcohol Use: No Hx Substance Use: No Hx Tobacco Use: No Smoking Status: Never smoker (JASON JOHNSON PA-C) Physical Exam Vitals Vital Signs Date Time Temp Pulse Resp B/P Pulse Ox O2 Delivery O2 Flow Rate FiO2 09/14/16 09:02 60 16 144/75 97 Room Air 09/14/16 08:49 63 20 144/75 96 Room Air 09/14/16 08:16 58 20 174/76 100 Room Air 09/14/16 07:23 98.1 74 18 181/81 99 (NONI LEWIS MD) Physical Exam Const: Obese, no acute distress Head: Atraumatic Eyes: Normal Conjunctiva ENT: Normal External Ears, Nose and Mouth. Neck: Full range of motion..~ No meningismus. Resp: Clear to auscultation bilaterally Cardio: Regular rate and rhythm, no murmurs Abd: Soft, mild pelvic tenderness along surgical incision site. No purulent drainage. non distended. Normal bowel sounds. No right lower quadrant pain. No tenderness [place]ney Skin: Evidence of surgical incision. No purulent drainage. No erythema or warmth Back: No midline or flank tenderness Ext: Bilateral lower extremity edema Neur: Awake and alert Psych: Normal Mood and Affect (JASON JOHNSON PA-C) Result Diagram: 09/14/16 0810 09/14/16 0810 Results 24 hrs Laboratory Tests Test 09/14/16 08:10 09/14/16 08:15 White Blood Count 7.310^3/ul Red Blood Count 4.1610^6/ul Hemoglobin 13.1g/dl Hematocrit 38.9% Mean Corpuscular Volume 93.5fl Mean Corpuscular Hemoglobin 31.5pg Mean Corpuscular Hemoglobin Concent 33.7g/dl Red Cell Distribution Width 13.3% Platelet Count 96367^3/UL Mean Platelet Volume 8.9fl Neutrophils % 70.7% Lymphocytes % 19.9% Monocytes % 4.4% Eosinophils % 2.6% Basophils % 0.5% Nucleated Red Blood Cells % 0.0/100WBC Neutrophils # 5.110^3/ul Lymphocytes # 1.510^3/ul Monocytes # 0.310^3/ul Eosinophils # 0.210^3/ul Basophils # 0.010^3/ul Nucleated Red Blood Cells # 0.010^3/ul Sodium Level 144mmol/L Potassium Level 4.0mmol/L Chloride Level 107mmol/L Carbon Dioxide Level 23mmol/L Anion Gap 18 Blood Urea Nitrogen 15mg/dl Creatinine 0.60mg/dl Glucose Level 102mg/dl Calcium Level 8.7mg/dl Total Bilirubin 0.3mg/dl Direct Bilirubin 0.00mg/dl Indirect Bilirubin 0.3mg/dl Aspartate Amino Transf (AST/SGOT) 57IU/L Alanine Aminotransferase (ALT/SGPT) 63IU/L Alkaline Phosphatase 94IU/L Total Protein 6.6g/dl Albumin 3.9g/dl Globulin 2.70g/dl Albumin/Globulin Ratio 1.44 Urine Color LT. YELLOW Urine Clarity CLOUDY Urine pH 5.5 Urine Specific [place] 1.020 Urine Ketones NEGATIVE Urine Nitrite NEGATIVE Urine Bilirubin NEGATIVE Urine Urobilinogen 0.2 E.U./dL Urine Leukocyte Esterase 3+ Urine Microscopic RBC 10-25/HPF Urine Microscopic WBC 5-10/HPF Urine Squamous Epithelial Cells OCCASIONAL/HPF Urine Bacteria MODERATE/HPF Urine Hemoglobin 3+ Urine Glucose NEGATIVE% Urine Total Protein NEGATIVE Current Medications Medications (Trade) Dose Ordered Sig/Jacoby Route PRN Reason Start Time Stop Time Status Last Admin Dose Admin Labetalol HCl (Labetalol) 20 mg ONCE ONCE IV 09/14/16 08:30 09/14/16 08:31 Cancel Hydralazine HCl (Apresoline) 10 mg ONCE ONCE IV 09/14/16 08:30 09/14/16 08:31 DC 09/14/16 08:26 Ondansetron HCl 4 mg 4 mg ER BRIDGE PRN IV NAUSEA AND/OR VOMITING 09/14/16 11:30 09/15/16 11:29 Magnesium Sulfate (Magnesium Sulfate 4 Gm/100 ml) 100 ml @ 25 mls/hr ONCE ONCE IVPB 09/14/16 11:30 09/14/16 15:29 09/14/16 11:27 Ceftriaxone Sodium 1 gm 1 gm ONCE ONCE IM 09/14/16 11:30 09/14/16 11:30 DC Ceftriaxone Sodium (Rocephin) 50 ml @ 100 mls/hr ONCE ONCE IVPB 09/14/16 11:30 09/14/16 11:59 DC 09/14/16 11:26 (NONI LEWIS MD) Procedures/MDM This a 40-year-old female who presents the emergency department today complaining of feeling weak and dizzy since yesterday. Upon review of patient' s medical records patient had a on September 05, [address] Arizmendi. Patient was then followed up at her primary care clinic on September 11 and was sent here to the emergency department for possible postop infection. The laborist was called to evaluate the patient and the laborist scientific publications editor Dr. Lopez recommended that the patient be placed on Keflex to treat possible infection. Upon review of patient's medical records patient had elevated blood pressure at that time of 161/72. It was then rechecked and was found to be normal at 140/81. Patient returns to the emergency department today for feeling weak and dizzy. Patient was found to have elevated blood pressure of 181/81 and bilateral swelling in both of her lower extremities. I did have some concern for preeclampsia and the attending physician Dr. Lewis was notified and I was instructed to call the patient's OB, Dr. Arizmendi. I was unable to reach Dr. Arizmendi in his office and on his cell phone and there was no way to leave a voicemail as well as his mailbox was full. I then placed a call to the laborist scientific publications editor here in the emergency department, Dr. Simmons and he recommended laboratory work and a UA Laboratory work shows no elevated white blood cell count. Her platelets are within normal limits. Her hemoglobin and hematocrit is within normal limits. Her electrolytes are within normal limits. Her AST is very mildly elevated. UA shows 3+ leukocyte Estrace. There is no evidence of protein in the urine. I then placed a call again to Dr. Simmons who agreed to come and evaluate the patient. He feels that the patient should be admitted to Dr. Arizmendi service and started on magnesium sulfate for concern for preeclampsia I also obtain an EKG read and interpreted by Dr. Maurer. Rate [address] elevation. No QT prolongation. Sinus bradycardia. Patient was given IV hydralazine for her blood pressure which improved to 144/ 75. She was also given Rocephin here in the emergency department for her urinary tract infection. Symptoms at this time is consistent with preeclampsia and urinary tract infection Critical Care Time: Critical Care Time: 45 minutes Critical Care Time: 45 minutes Treatments/Evaluations: Close monitoring and treatment of unstable vital signs, cardiorespiratory, and neurologic status, while maintaining tight balance of fluid, respiratory, and cardiac interventions. This time includes discussing the case with the patient and the patient's family. This time does not include all procedures stated elsewhere in this record. This time also includes reviewing old records, labs and radiological studies. This time includes examining and re-examining the patient. Additionally, this time also includes arranging care with admitting and consulting physicians. Any further orders placed will be placed by Dr. Lewis or the laborist scientific publications editor or admitting physician. (JASON JOHNSON PA-C) Attending Attestation I saw and evaluated the patient. Discussed the patient's case with the physician 's patient support assistant/nurse practitioner and agree with the findings and plan as documented in their note. I also spoke with the laborist on-call, who recommended admitting the patient to Dr. Arizmendi service. We were unable to get in contact with Dr. Arizmendi, however the laborist stated that it was okay to admit under Dr. Lopez name and he will put in orders. (NONI LEWIS MD) Departure Diagnosis: Primary Impression: Pre-eclampsia in period Additional Impression: UTI (lower urinary tract infection) Condition: Fair JASON JOHNSON PA-C Sep 14, 2016 09:42 NONI LEWIS MD Sep 14, 2016 12:46
[2016-09-14] MEDS ORDERED: MAGNESIUM SULFATE 4 GM/100 ML 100 ML IVPB ONE (11:30)
[2016-09-14] MEDS ORDERED: CEFTRIAXONE 1 GM INJ IM ONE (11:30)
[2016-09-14] MEDS ORDERED: ONDANSETRON 4 MG INJ IV PRN ×2 (11:30→14:30)
[2016-09-14] MEDS ORDERED: CEFTRIAXONE 1 GM/50 ML (PMX) 50 ML IVPB ONE (11:30)
[2016-09-14] MEDS ORDERED: MAGNESIUM SULFATE 20 GM/500 ML 500 ML IV SCH ×2 (14:19)
[2016-09-14] MEDS ORDERED: LACTATED RINGER'S 1,000 ML IV SCH (14:19)
[2016-09-14] MEDS ORDERED: AL HYDROX/MG HYDROX/SIMETH 30 ML CUP PO PRN (14:30)
[2016-09-14] MEDS ORDERED: DOCUSATE SODIUM 100 MG CAP PO PRN (14:30)
[2016-09-14] MEDS ORDERED: ACETAMINOPHEN 325 MG TAB PO PRN (14:30)
[2016-09-14] MEDS ORDERED: CA GLUCONATE (GM) 10% 10ML INJ IV PRN (14:30)
--- NOTE | 2016-09-14 17:56 | HP ---
Date/Time of Note Date/Time of Note DATE: 09/14/16 TIME: 17:49 Assessment/Plan VTE Prophylaxis VTE Prophylaxis Intervention: ambulation Lines/Catheters IV Catheter Type (from Nrs): Peripheral IV Assessment/Plan Assessment/Plan Status post 9 days Possible -induced hypertension Will start on antihypertensives Observe patient 24 hours Patient self started herself on Zocor. It is unclear whether elevated enzymes or results of Zocor or disease process Repeat CMP and CBC in a.m. HPI/ROS Admit Date/Time Admit Date/Time Sep 14, 2016 at 11:08 Hx of Present Illness 40-year-old female status post 9 days was sent from clinic for evaluation of elevated blood pressure. Blood pressure in the emergency room were 170s 180s over 80s and 90s and patient had 3+ proteinuria with very minimal elevation of liver enzymes possible -induced hypertension ROS Patient denies headache blurred vision and epigastric pain Does not have any symptoms Constitutional: improved, no complaints PMH/Family/Social Past Medical History Medical History: no pertinent history Past Surgical History Status post 9 days Family History Significant Family History: no pertinent family hx Social History Alcohol Use: none Smoking Status: Never smoker Drug Use: none Exam/Review of Systems Vital Signs Vitals Vital Signs Date Time Temp Pulse Resp B/P Pulse Ox O2 Delivery O2 Flow Rate FiO2 09/14/16 09:02 60 16 144/75 97 Room Air 09/14/16 07:23 98.1 Exam Exam Patient general physical exam is totally normal Patient does not seem to be in acute distress Incision is healing well Constitutional: alert, oriented, well developed Psych: nl mood/affect, no complaints Head: atraumatic, normocephalic Eyes: EOMI, PERRL, nl conjunctiva, nl lids, nl sclera ENMT: nl external ears & nose, nl lips & teeth, nl nasal mucosa & septum Neck: non-tender, supple Respiratory: clear to auscultation, normal air movement Cardiovascular: nl pulses, regular rate and rhythm Gastrointestinal: nl liver, spleen, non-tender, soft Musculoskeletal: nl extremities to inspection Extremities: normal pulses 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, nl mental status, nl speech, nl strength Skin: nl turgor, No rash or lesions Lymph: nl lymph nodes Labs Result Diagram: 09/14/16 0810 09/14/16 0810 Medications Medications Current Medications Lactated Ringer's (Lr) 1,000 ml @ 75 mls/hr [id number] IV ; Start 09/14/16 at 14: 19 Docusate Sodium (Colace) 100 mg DAILY PRN PO CONSTIPATION; Start 09/14/16 at 14 :30 Acetaminophen (Tylenol Tab) 650 mg Q4H PRN PO PAIN AND OR ELEVATED TEMP; Start 09/14/16 at 14:30 Al Hydrox/Mg Hydrox/Simethicone (Mag-Al Plus) 30 ml Q6H PRN PO GASTROINTESTINAL UPSET; Start 09/14/16 at 14:30 Ondansetron HCl (Zofran Inj) 4 mg Q6H PRN IV NAUSEA AND/OR VOMITING; Start at 14:30 Calcium Gluconate (Ca Gluc) 1 gm ONCE PRN IV FOR MAGNESIUM TOXICITY; Start 09/14 at 14:30 Labetalol HCl (Normodyne) 200 mg BID PO ; Start 09/14/16 at 21:00 SILVIA RAMIREZ MD Sep 14, 2016 17:56
[2016-09-14 20:00] VITALS: BP 147/74; PULSE 62; RESP 16
[2016-09-14] MEDS: LABETALOL 100 MG TAB PO SCH (21:01)
[2016-09-14 23:53] VITALS: BP 137/74; PULSE 57; RESP 18
[2016-09-15 04:40] VITALS: BP 147/65; PULSE 63; RESP 18
[2016-09-15 08:25] LABS: ADD SCAN DIFF NO
[2016-09-15 08:37] LABS: BASOPHILS % 0.4 % (0.0-2.0); EOSINOPHILS # 0.1 10^3/ul (0.0-0.5); EOSINOPHILS % 1.5 % (0.0-7.0); HEMATOCRIT 40.9 % (37.0-47.0); HEMOGLOBIN 13.6 g/dl (12.0-16.0); LYMPHOCYTES # 1.5 10^3/ul (0.8-2.9); MEAN CORPUSCULAR HEMOGLOBIN 31.1 pg (29.0-33.0); MEAN CORPUSCULAR HGB CONC 33.3 g/dl (32.0-37.0); MEAN CORPUSCULAR VOLUME 93.6 fl (82.0-101.0); MEAN PLATELET VOLUME 9.2 fl (7.4-10.4); MONOCYTE # 0.4 10^3/ul (0.3-0.9); MONOCYTES % 5.5 % (0.0-11.0); NEUTROPHIL # 5.9 10^3/ul (1.6-7.5); NEUTROPHILS % 73.2 % (39.0-77.0); PLATELET COUNT 242 10^3/UL (140-415); RED BLOOD COUNT 4.37 10^6/ul (4.20-5.40); RED CELL DISTRIBUTION WIDTH 13.8 % (11.5-14.5); WHITE BLOOD COUNT 8.1 10^3/ul (4.8-10.8)
[2016-09-15 08:44] LABS: INR 0.99; PARTIAL THROMBOPLASTIN TIME 30.2 Sec (25.0-35.0); PROTIME 13.1 Sec (12.2-14.2)
[2016-09-15] MEDS ORDERED: ENOXAPARIN 40 MG/0.4 ML SYG SC SCH (09:00)
[2016-09-15 09:11] LABS: ALBUMIN 3.9 g/dl (3.3-4.9); BILIRUBIN,INDIRECT 0.3 mg/dl (0-1.1); BILIRUBIN,TOTAL 0.3 mg/dl (0.2-1.3); CALCIUM 8.7 mg/dl (8.4-10.2); CREATININE 0.52 mg/dl (0.44-1.00); PHOSPHORUS 4.8 mg/dl (2.5-4.9); POTASSIUM 3.8 mmol/L (3.5-5.1); TOTAL PROTEIN 6.7 g/dl (6.1-8.1); URIC ACID 4.5 mg/dl (3.1-7.9)
[2016-09-15] MEDS: LABETALOL 100 MG TAB PO SCH (09:22)
[2016-09-15 10:08] LABS: ALBUMIN/GLOBULIN RATIO 1.6; BILIRUBIN,INDIRECT 0.3 mg/dl (0-1.1); BILIRUBIN,TOTAL 0.3 mg/dl (0.2-1.3); CALCIUM 8.6 mg/dl (8.4-10.2); CREATININE 0.57 mg/dl (0.44-1.00); TOTAL PROTEIN 6.5 g/dl (6.1-8.1)
--- NOTE | 2016-09-15 15:53 | QN ---
Documentation Comment Patient has no medical complaints Has no complaint of headache blurred vision or epigastric pain Blood pressures are stable on labetalol Liver enzymes are slightly elevated Because patient is a stable will DC patient home on p.o. labetalol SILVIA RAMIREZ MD Sep 15, 2016 15:53
--- NOTE | 2016-09-15 15:55 | DS ---
Date/Time of Note Date/Time of Note DATE: 09/15/16 TIME: 15:53 Discharge Summary Admission/Discharge Info Admit Date/Time Sep 14, 2016 at 11:08 Discharge Date/Time September 15, 2016 Discharge Diagnosis Possible -induced hypertension Patient Condition: Good Procedures None Hx of Present Illness 40-year-old female status post 9 days was sent from clinic for evaluation of elevated blood pressure. Blood pressure in the emergency room were 170s 180s over 80s and 90s and patient had 3+ proteinuria with very minimal elevation of liver enzymes possible -induced hypertension Patient had a stable course in hospital Blood pressures remained stable on p.o. labetalol Hospital Course Uncomplicated Home Meds Active Scripts Cephalexin* (Keflex*) 500 Mg Capsule, 500 MG PO QID for 10 Days, CAP Prov:ELGIN ANDRE 09/11/16 [Oxycodone/Acetamin (5/325)] 1 TAB TAB No Conflict Check, 2 TAB PO Q4H Y for PAIN LEVEL 6-10, #30 0 Refills Prov:SILVIA RAMIREZ MD 09/07/16 Ibuprofen* (Ibuprofen*) 800 Mg Tablet, 800 MG PO Q8, #30 TAB 0 Refills Prov:SILVIA RAMIREZ MD 09/07/16 Reported Medications Ferrous Sulfate (Iron) 325 Mg Capsule.er, 325 MG PO DAILY, CAP 04/20/16 Vit-Iron Fumarate-FA ( Tablet) 1 Each Tablet, 1 TAB PO DAILY, TAB 04/20/16 Follow-up Plan 4 days in clinic Primary Care Provider Care Physician No Primary Time spent on discharge: < 30 minutes Pending Labs Laboratory Tests Test 09/15/16 07:00 09/15/16 07:38 Prothrombin Time 13.1Sec (12.2-14.2) Prothrombin Time Ratio 1.0 INR International Normalized Ratio 0.99 Activated Partial Thromboplast Time 30.2Sec (25.0-35.0) White Blood Count 8.110^3/ul (4.8-10.8) Red Blood Count 4.3710^6/ul (4.20-5.40) Hemoglobin 13.6g/dl (12.0-16.0) Hematocrit 40.9% (37.0-47.0) Mean Corpuscular Volume 93.6fl (82.0-101.0) Mean Corpuscular Hemoglobin 31.1pg (29.0-33.0) Mean Corpuscular Hemoglobin Concent 33.3g/dl (32.0-37.0) Red Cell Distribution Width 13.8% (11.5-14.5) Platelet Count 93683^3/UL (140-415) Mean Platelet Volume 9.2fl (7.4-10.4) Neutrophils % 73.2% (39.0-77.0) Lymphocytes % 18.0% (15.0-51.0) Monocytes % 5.5% (0.0-11.0) Eosinophils % 1.5% (0.0-7.0) Basophils % 0.4% (0.0-2.0) Nucleated Red Blood Cells % 0.0/100WBC (0.0-0.0) Neutrophils # 5.910^3/ul (1.6-7.5) Lymphocytes # 1.510^3/ul (0.8-2.9) Monocytes # 0.410^3/ul (0.3-0.9) Eosinophils # 0.110^3/ul (0.0-0.5) Basophils # 0.010^3/ul (0.0-0.1) Nucleated Red Blood Cells # 0.010^3/ul (0.0-0.0) Sodium Level 141mmol/L (135-144) Potassium Level 4.0mmol/L (3.5-5.1) Chloride Level 106mmol/L (97-110) Carbon Dioxide Level 25mmol/L (21-31) Anion Gap 14 (8-16) Blood Urea Nitrogen 10mg/dl (7-20) Creatinine 0.57mg/dl (0.44-1.00) Glucose Level 91mg/dl (70-220) Uric Acid 4.5mg/dl (3.1-7.9) Calcium Level 8.6mg/dl (8.4-10.2) Phosphorus Level 4.8mg/dl (2.5-4.9) Total Bilirubin 0.3mg/dl (0.2-1.3) Direct Bilirubin 0.00mg/dl (0.00-0.20) Indirect Bilirubin 0.3mg/dl (0-1.1) Aspartate Amino Transf (AST/SGOT) 64IU/L (15-46) Alanine Aminotransferase (ALT/SGPT) 57IU/L (13-69) Alkaline Phosphatase 103IU/L (42-121) Lactate Dehydrogenase 915IU/L (313-618) Total Protein 6.5g/dl (6.1-8.1) Albumin 4.0g/dl (3.3-4.9) Globulin 2.50g/dl (1.3-3.2) Albumin/Globulin Ratio 1.60 SILVIA RAMIREZ MD Sep 15, 2016 15:55
--- NOTE | 2016-09-15 15:56 | PD.PPDC ---
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
[2016-09-15] MEDS ORDERED: LABE100T3 PO (15:58)
--- NOTE | 2016-09-16 14:40 | HP ---
DATE OF ADMISSION: 09/14/2016 HISTORY OF PRESENT ILLNESS: This is a 40-year-old status post C- section on 09/05/2016. The patient had been evaluated in the emergency room on 09/11/2016 and 09/14/2016 for high blood pressure. The patient denies any headaches, blurry vision or epigastric pain. PAST MEDICAL HISTORY: Denies. PAST SURGICAL HISTORY: Two previous C-sections. ALLERGIES: NKDA. PHYSICAL EXAMINATION: VITAL SIGNS: Stable. GENERAL APPEARANCE: Exam normal. ABDOMEN: Incision does not look infected although there is wound separation. GENITOURINARY: Deferred. ASSESSMENT AND PLAN: A 40-year-old status post section on 09/05/2016 admitted through the emergency room with high blood pressure, and also abnormal labs. The patient is suspected of preeclampsia. She gets admitted for: 1. Magnesium treatment 4 g stat and 2 g per hour. 2. She needs 24-hour urine for protein. 3. Repeat labs for tomorrow. 4. The patient will be assessed and evaluated by primary care physician, that is not available at this time. Dictated By: Rhett Eng MD /vishnu/ec /Document#: [id number]
--- NOTE | 2016-09-17 13:49 | RADRPT ---
Vent Rate: 61 bpm RR Interval: 0 msec VA Interval: 152 msec QRS Duration: 80 msec QT Interval: 446 msec QTC Interval: 448 msec P-R-T [place]: 46 - 12 - 36 degrees Normal sinus rhythm Low voltage QRS Cannot rule out Anterior infarct , age undetermined Abnormal ECG Electronically Signed By: Edmar Bailon [id number]
== END 2016-09-15 17:00 | disposition home or self-care (01) ==
LOC: FTE 07:18 → OBG 11:08
PROVIDERS: ADMIT Obstetrics & Gynecology; ATTEND Obstetrics & Gynecology
DX: R03.0 Elevated blood-pressure reading, without diagnosis of hypertension (principal)
CPT/HCPCS: 36415; 80053; 80069; 80076; 81001; 83615; 84156; 84560; 85025; 85610; 85730; 93005; 96374; 96375; J0360; J0696; J1650; J3475; J7120; Z7500; Z7502; Z7610; 99217; G0378

== ENCOUNTER 2018-10-02 16:39 | Emergency (ER) | payer MEDICAID ==
[~2018-10-02] VITALS: Wt 90.0 kg
[~2018-10-02 16:39] MED LIST changes: +IBUP-1544 PO; -IBUP800T25 PO; +LABE100T7 PO
[2018-10-02 16:43] VITALS: BP 137/82; PULSE 82; RESP 18
--- NOTE | 2018-10-02 18:10 | ERD ---
ER Documentation Chief Complaint Chief Complaint RIGHT EYE BLURRY VISION X 2 WEEKS HPI Patient is a 43 years old female with no known past medical history presenting to the ED for right eye blurriness X 2 weeks. Patient describes seeing a black spider hanging from her right eye. She admits to having some blurry vision when her left eye is closed. She denies any pain, headaches, pressure. Patient reports that last medical visit was 9 years ago. Patient denies any PCP at the moment. ROS All systems reviewed and are negative except as per history of present illness. Medications Home Meds Active Scripts Cephalexin* (Keflex*) 500 Mg Capsule, 500 MG PO QID for 10 Days, CAP Prov:THAI,ELGIN 10/27/16 Labetalol Hcl* (Labetalol Hcl*) 100 Mg Tablet, 200 MG PO BID, #120 TAB 0 Refills Prov:SILVIA RAMIREZ MD 09/15/16 [Oxycodone/Acetamin (5/325)] 1 TAB TAB No Conflict Check, 2 TAB PO Q4H PRN for PAIN LEVEL 6-10, #30 0 Refills Prov:SILVIA RAMIREZ MD 09/07/16 Ibuprofen* (Ibuprofen*) 800 Mg Tablet, 800 MG PO Q8, #30 TAB 0 Refills Prov:SILVIA RAMIREZ MD 09/07/16 Reported Medications Ferrous Sulfate (Iron) 325 Mg Capsule.er, 325 MG PO DAILY, CAP 04/20/16 Vit-Iron Fumarate-FA ( Tablet) 1 Each Tablet, 1 TAB PO DAILY, TAB 04/20/16 Allergies Allergies: Coded Allergies: No Known Drug Allergies (Verified Allergy, Unknown, 04/20/16) No Known Drug Allergy (Unverified Allergy, Unknown, 01/22/14) PMhx/Soc History of Surgery: Yes (c section x's 2 ) Anesthesia Reaction: No Hx Neurological Disorder: No Hx Respiratory Disorders: No Hx Cardiac Disorders: Yes (HIGH CHOLESTEROL) Hx Psychiatric Problems: No Hx Miscellaneous Medical Probl: Yes Hx Alcohol Use: No Hx Substance Use: No Hx Tobacco Use: No Smoking Status: Never smoker FmHx Family History: No diabetes, No coronary disease, No other Physical Exam Vitals Vital Signs Date Temp Pulse Resp B/P (MAP) Pulse Ox O2 O2 Flow FiO2 Time Delivery Rate 10/02/18 98.1 82 18 137/82 99 16:43 (100) Physical Exam Const: No acute distress Head: Atraumatic Eyes: Right outer iris is white in color. No conjunctiva, no signs of foreign body. PERRLA, no nystagmus. Normal visual acuity test. Resp: Clear to auscultation bilaterally Cardio: Regular rate and rhythm, no murmurs Psych: Normal Mood and Affect Procedures/MDM Patient was seen and evaluated for right eye blurriness. Visual acuity test performed in ED. patient is vision is intact shows no signs of glaucoma, cataract, orbital rupture. Patient is most likely experiencing Arcus senilis. Patient is stable and ready for discharge. Follow-up with PCP. 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 She was advised about importance of annual physical comprehensive lab work-up. Departure Diagnosis: Primary Impression: Arcus senilis of right eye Condition: Stable Patient Instructions: Blurred Vision Referrals: [facility] Additional Instructions: Paciente aconseja volver a Departamento de urgencias inmediatamente para sntomas nuevos o que empeoran . Paciente aconseja posteriores con el PCP en 2-3 rodriguez . Paciente verbaliza la comprehensin y est de acuerdo con el tratamiento y el curso de accin. Si el paciente no tiene ninguna de atencin primaria pueden seguir con [facility] [address] [place] [address] o [facility] + [address] [address] HARRIET YANCEY PA-C Oct 02, 2018 18:10
== END 2018-10-02 18:24 | disposition home or self-care (01) ==
LOC: FTE 16:39
DX: H18.411 Arcus senilis, right eye (principal)
CPT/HCPCS: 99282